=== PATIENT | male | born 1985 | race Caucasian/White ===

== ENCOUNTER → 2022-02-04 14:40 | Outpatient (BNVA) | payer OTHER, SELFPAY | PROVIDERS: Visit Provider Nurse Practitioner Family | DX: I10 Essential (primary) hypertension (principal); Z13.6 Encounter for screening for cardiovascular disorders; Z79.899 Other long term (current) drug therapy; E55.9 Vitamin D deficiency, unspecified; M25.511 Pain in right shoulder; G89.29 Other chronic pain; M54.50 Low back pain, unspecified | CPT/HCPCS: 80053; 80061; 81003; 82306; 83036; 83880; 84439; 84443; 85025 ==

== ENCOUNTER 2022-02-09 10:21 | Outpatient (CLI) | payer OTHER, SELFPAY ==
--- NOTE | 2022-02-09 10:30 | XR_ITS ---
WS: [id number] Lumbar spine, AP view, L5-S1 spot, both obliques, lateral views in flexion, extension and neutral pos ition, 02/09/2022 Clinical Data: M54.50 - Low back pain, unspecified Comparison: None. Findings: No compression fractures or subluxation is seen. No disc space narrowing is seen. There is minimal an terior osteoarthritic spurring from L1 through L5. The transverse processes and SI joints are normal. The oblique films show no spondylolysis. On flexion and extension there is no limitation of motion or subluxation. There are upper abdominal surgical clips from a cholecystectomy. XR/XR lumbar spine 6V w f/e [id number] Impression: 1. Minimal osteoarthritis L-1-L5. 2. Negative for spondylolysis or spondylolisthesis. 3. Negative for limitation of motion or subluxation on flexion or extension.
--- NOTE | 2022-02-09 10:30 | XR_ITS ---
WS: [id number] Right shoulder, 2 views, 02/09/2022 Clinical Data: M25.511 - Pain in right shoulder Comparison: None. Findings: No fractures or dislocations are seen. The AC joint is normal. The adjacent right clavicle, right sca pula and ribs are normal. The soft tissues are unremarkable. XR/XR shoulder RT min 2V* [id number] Impression: Negative right shoulder.
== END 2022-02-09 10:22 | disposition home or self-care (01) ==
PROVIDERS: Visit Provider Nurse Practitioner Family
DX: M54.50 Low back pain, unspecified (principal); M25.511 Pain in right shoulder
CPT/HCPCS: 72114; 73030

== ENCOUNTER → 2023-05-05 10:10 | Outpatient (BNVA) | payer MEDICAID, SELFPAY | PROVIDERS: PCP Nurse Practitioner Family; Visit Provider Internal Medicine Cardiovascular Disease | DX: I25.10 Atherosclerotic heart disease of native coronary artery without angina pectoris (principal) | CPT/HCPCS: 93005 ==

== ENCOUNTER 2023-07-20 13:28 | Emergency (ER) | payer MEDICAID, SELFPAY ==
--- NOTE | 2023-07-20 13:31 | ED_ITS ---
HPI - General Adult General: Chief complaint: General Medical Stated complaint: HTN Time Seen by Provider: 07/20/23 13:29 Source: patient and EMS Mode of arrival: EMS Limitations: no limitations History of Present Illness: Patient is a 38-year-old male with a history of HTN who presents to ED today at the request of his primary care provider as he went to their office today and was found to be extremely hypertensive. Patient states he went to their office today due to an episode of slurred speech and left eye drooping that had occurred approximately 2 to 3 days earlier. He states the episode lasted approximately 30 to 45 minutes before subsiding and he states he has been asymptomatic since. Patient states he has had multiple episodes over the past 12 years consisting of intermittent numbness to the arms and legs and intermittent confusion. He states he has been hospitalized and told he has had TIAs. He reports all of his head scans have reportedly been normal. He has had carotid ultrasound imaging that was reportedly normal. Upon initial examination he has no neurologic complaints at this time. He is asymptomatic in regards to his hypertension. Patient states he takes his blood pressure at home and it normally runs 150s/90s. Has taken all of his medications today. Onset (ago): hour(s) Relieving factors: none Exacerbating factors: none Associated symptoms: Reports no associated symptoms; Deny chest pain, confusion, dyspnea, headache(s), malaise, nausea, rash, palpitations, syncope or vomiting Treatments prior to arrival: none Review of Systems Const: Denies: fever(s), chills, body aches, fatigue or malaise Eyes: Denies: change in vision, blurry vision, photophobia, floaters or seeing flashes Card: Denies: chest pain, palpitations, irregular heart rhythm, lightheadedness, syncope or pre-syncope Resp: Denies: dyspnea GI: Denies: abdominal pain, nausea or vomiting Musc: Denies: neck pain, back pain, extremity pain or joint pain Skin/Breast: Denies: rash Neuro: Reports: Slurred speech present (episode several days ago-subsided; asymptomatic since); Denies: headache(s), numbness in extremities, weakness in extremities, sensory changes, lack of coordination, difficulty walking, dizziness, vertigo, confusion, behavioral changes, difficulty communicating thoughts or seizure-like activity [facility] ED PFSH: Medical History Chronic low back pain Chronic shoulder pain History of anxiety History of asthma History of back injury History of posttraumatic stress disorder (PTSD) History of PSVT (paroxysmal supraventricular tachycardia) History of TIA (transient ischemic attack) Hypertension Hypertension screen Medication management Osteoarthritis of lumbar spine Right shoulder pain Vitamin D deficiency Surgical History H/O repair of rotator cuff History of right knee surgery S/P cholecystectomy Family History Mother Diabetes Hypertension Grandmother Diabetes Myocardial infarction Hypertension Grandfather Diabetes Myocardial infarction Stroke Hypertension Father Malignant melanoma Hypertension Social History Smoking and tobacco status: current some day smoker cigars Cigar details: Rarely Physical Exam Const: COMMON NORMALS: no acute distress, patient oriented x3, no limitations and alert GENERAL APPEARANCE: cooperative NUTRITIONAL APPEARANCE: obese morbidly obese ORIENTATION/CONSCIOUSNESS: Yes awake, Yes oriented to person, Yes oriented to place and Yes oriented to time HENMT: COMMON NORMALS: normocephalic and atraumatic HEAD & SCALP: normal to inspection, normocephalic and atraumatic Eye: GENERAL EYE: appearance normal, both eyes and all related structures and normal light reflex DIRECT OPHTHALMOSCOPY: Yes normal light reflex Neck/C-Spine: COMMON NORMALS: full ROM, no lymphadenopathy, no meningeal signs, no JVD and No carotid bruits Resp: COMMON NORMALS: normal respiratory effort and clear to auscultation bilaterally AUSCULTATION: clear to auscultation bilaterally Cardio: COMMON NORMALS: no JVD, regular rate and regular rhythm RATE: regular rate RHYTHM: regular rhythm GI: COMMON NORMALS: Normal to inspection, nondistended, normoactive bowel sounds present, Soft to palpation, non-tender and no masses INSPECTION: Yes normal to inspection and No visible pulsation PALPATION: Yes Soft to palpation Extremity: COMMON NORMALS: normal to inspection, capillary refill normal, no joint enlargement, no clubbing, cyanosis or edema, no calf tenderness and no pedal edema GENERAL: Yes normal exam except as noted Neuro: DARRYL COMA SCALE: document GCS findings Melber coma scale eye opening: Spontaneous Darryl coma scale verbal response: Orientated Melber coma scale motor response: Obey commands Melber coma scale total score: 15 COMMON NORMALS: patient oriented x3 SENSORIUM/ORIENTATION: Yes alert, Yes oriented to person, Yes oriented to place and Yes oriented to time MENINGEAL SIGNS: Yes no meningeal signs MOTOR EXAM: 5/5 motor strength present throughout Skin: COMMON NORMALS: no rashes or lesions noted GENERAL SKIN EXAM: no aba hes or lesions noted Course Vital Signs: Vital signs: Vital Signs Temperature 98.4 F 07/20/23 13:32 Pulse Rate 88 07/20/23 15:30 Respiratory Rate 20 H 07/20/23 13:32 Blood Pressure 136/88 07/20/23 15:30 Pulse Oximetry 96 07/20/23 15:30 Oxygen Delivery Me thod Room Air 07/20/23 14:14 MDM - General Adult Medical Decision Making Patient here at the request of his primary care provider due to elevated blood pressures. Upon arrival blood pressure was 170s /110s. He is asymptomatic. He complained of an episode 2 to 3 days ago where he had about 30 minutes of left- sided eye drooping and slurred speech. This has since subsided and he has been asymptomatic since. He tells me he has had multiple episodes of intermittent numbness and tingling to his arms and legs as well as intermittent episodes of confusion. He has been told he has had TIAs previously. Patient states he has had multiple hospitalizations but they never find anything wrong . I do not see any need for emergent imaging at this time. I think he can follow-up with his primary care provider in regards to this. Possibly a neurology referral if they feel indicated. Blood pressure has improved here with IV medications. He will be encouraged to keep a blood pressure log and follow-up with his primary care provider. We will have him increase his lisinopril from 20 mg to 30 mg daily. Lab Data 07/20/23 15:01 07/20/23 15:01 Laboratory Results WBC 9.29 10^3/uL (3.29-11.43) 07/20/23 15:01 RBC 5.25 10^6/uL (3.85-5.65) 07/20/23 15:01 Hgb 15.60 g/dL (11.27-16.99) 07/20/23 15:01 Hct 45.4 % (37-53) 07/20/23 15:01 MCV 86.5 fl (82-101) 07/20/23 15:01 MCH 29.7 pg (27-33) 07/20/23 15:01 MCHC 34.4 g/dL (30-55) 07/20/23 15:01 RDW 12.8 % (12.1-15.1) 07/20/23 15:01 Plt Count 217 10^3/cmm (157-399) 07/20/23 15:01 MPV 10.8 fL (7.4-10.4) H 07/20/23 15:01 Neut % (Auto) 75.7 % 07/20/23 15:01 Lymph % (Auto) 16.9 % 07/20/23 15:01 [place] % (Auto) 5.7 % 07/20/23 15:01 Eos % (Auto) 1.0 % 07/20/23 15:01 Baso % (Auto) 0.5 % 07/20/23 15:01 Neut # (Auto) 7.03 10^3/uL (1.8-7.7) 07/20/23 15:01 Lymph # (Auto) 1.6 10^3/uL (0.8-4.8) 07/20/23 15:01 [place] # (Auto) 0.5 10^3/uL (0.2-0.9) 07/20/23 15:01 Eos # (Auto) 0.1 10^3/uL (0.0-0.8) 07/20/23 15:01 Baso # (Auto) 0.1 10^3/uL (0.0-0.1) 07/20/23 15:01 Nucleated RBC % (auto) 0 % 07/20/23 15:01 Nucleated RBCs # 0.0 /100WBC 07/20/23 15:01 Sodium 140 mmol/L (136-145) 07/20/23 15:01 Potassium 3.7 mmol/L (3.5-5.1) 07/20/23 15:01 Chloride 103 mmol/L (98-107) 07/20/23 15:01 Carbon Dioxide 27 mmol/L (22-29) 07/20/23 15:01 Anion Gap 13.7 (5-19) 07/20/23 15:01 BUN 9 mg/dL (6-20) 07/20/23 15:01 Creatinine 0.9 mg/dL (0.7-1.2) 07/20/23 15:01 GFR Calculation 95.0 mL/min (90-130) 07/20/23 15:01 Glucose 92 mg/dL (65-115) 07/20/23 15:01 Calculated Osmolality 288 mOsm/kg (285-295) 07/20/23 15:01 Calcium 9.5 mg/dL (8.5-10.5) 07/20/23 15:01 Total Bilirubin 0.5 mg/dL (0.15-1.2) 07/20/23 15:01 AST 36 U/L (0-40) 07/20/23 15:01 ALT 66 U/L (0-41) H 07/20/23 15:01 Alkaline Phosphatase 74 U/L (40-130) 07/20/23 15:01 Total Protein 7.5 g/dL (6.6-8.7) 07/20/23 15:01 Albumin 4.8 g/dL (3.5-5.2) 07/20/23 15:01 Globulin 2.7 g/dL (1.3-4.6) 07/20/23 15:01 Urine Color Yellow (Yellow) 07/20/23 15:35 Urine Appearance Clear (CLEAR) 07/20/23 15:35 Urine pH 5 (5-7) 07/20/23 15:35 Ur Specific [place] 1.020 (1.005-1.030) 07/20/23 15:35 Urine Protein Neg (Negative) 07/20/23 15:35 Urine Glucose (UA) Norm (Normal) 07/20/23 15:35 Urine Ketones Negative (Negative) 07/20/23 15:35 Urine Blood Neg (Negative) 07/20/23 15:35 Urine Nitrate Negative (Negative) 07/20/23 15:35 Urine Bilirubin Neg (Negative) 07/20/23 15:35 Urine Urobilinogen Norm mg/dL (Negative) 07/20/23 15:35 Ur Leukocyte Esterase Negative (Negative) 07/20/23 15:35 Discharge Plan Discharge Patient Disposition: Home Clinical Impression: Asymptomatic hypertensive urgency Condition: Stable Prescriptions: No Action meloxicam 15 mg tablet 15 mg PO DAILY 30 Days Qty: 30 1RF fluoxetine 40 mg capsule 40 mg PO DAILY trazodone 50 mg tablet 50 mg PO .HS lisinopril 20 mg tablet 20 mg PO DAILY olanzapine 2.5 mg tablet 2.5 mg PO DAILY amitriptyline 50 mg tablet 50 mg PO .HS buspirone 10 mg tablet 10 mg PO BID fluticasone propion-salmeterol [Advair Diskus] 250-50 mcg/dose blister with device 1 inh inhalation BID hydroxyzine HCl 25 mg tablet 25 mg PO TID PRN hydrochlorothiazide 25 mg tablet 25 mg PO DAILY ondansetron 4 mg tablet,disintegrating 4 mg PO Q8H PRN albuterol sulfate [Ventolin HFA] 90 mcg/actuation HFA aerosol inhaler 2 puff inhalation Q6H PRN (Reason: Shortness Of Breath) Discharge Orders: Discharge ED (Routine); Ordered 07/20/23 Ordered By: Loree New Referrals: Mirta Green [facility] INSURANCE ASSESSOR [Primary Care Provider] - Patient Instructions: Hypertension Activity Restrictions/Additional Instructions: As discussed, you may increase your dose of lisinopril to 30 mg once daily. Please keep a log of your blood pressures, and record your blood pressure once in the morning and once in the evening. Follow-up with your primary care provider in the next week to discuss ER visit and for further evaluation. Return if you develop any chest pain, breathing difficulties, or any other symptoms you may have. Coding Level of Care Code ED [employer] for Steve Fontana
[2023-07-20 13:32] VITALS: BP 172/112; PULSE 85; RESP 20; TEMP 36.9; O2SAT 96
[2023-07-20] MEDS: hyDRALAzine 20 mg/mL INJ 1 mL 10 MG IVP (14:09)
[2023-07-20 14:14] VITALS: BP 190/122; PULSE 87; O2SAT 97
[2023-07-20 15:00] VITALS: BP 150/94; PULSE 91; O2SAT 97
[2023-07-20] MEDS: enalaprilat 1.25 mg/mL Inj IVP (15:08)
[2023-07-20 15:21] LABS: Basophils # 0.1 10^3/uL (0.0-0.1); Basophils % 0.5 %; Eosinophils # 0.1 10^3/uL (0.0-0.8); Hematocrit 45.4 % (37-53); Lymphocytes # 1.6 10^3/uL (0.8-4.8); Lymphocytes % 16.9 %; Mean Corpuscular HGB Conc 34.4 g/dL (30-55); Mean Corpuscular Hemoglobin 29.7 pg (27-33); Mean Corpuscular Volume 86.5 fl (82-101); Mean Platelet Volume 10.8 fL (7.4-10.4); Monocytes # 0.5 10^3/uL (0.2-0.9); Monocytes % 5.7 %; Neutrophils # 7.03 10^3/uL (1.8-7.7); Neutrophils % 75.7 %; Nucleated Red Blood Cells % 0 %; Platelet Count 217 10^3/cmm (157-399); Red Blood Count 5.25 10^6/uL (3.85-5.65); Red Cell Distribution Width 12.8 % (12.1-15.1); White Blood Count 9.29 10^3/uL (3.29-11.43)
[2023-07-20 15:30] VITALS: BP 136/88; PULSE 88; O2SAT 96
[2023-07-20 15:43] LABS: Alanine Aminotransferase 66 U/L (0-41); Albumin Level 4.8 g/dL (3.5-5.2); Alkaline Phosphatase 74 U/L (40-130); Anion Gap 13.7 (5-19); Aspartate Amino Transferase 36 U/L (0-40); Blood Urea Nitrogen 9 mg/dL (6-20); Calcium 9.5 mg/dL (8.5-10.5); Carbon Dioxide 27 mmol/L (22-29); Chloride 103 mmol/L (98-107); Globulin 2.7 g/dL (1.3-4.6); Glucose 92 mg/dL (65-115); Osmolality Calculated 288 mOsm/kg (285-295); Potassium 3.7 mmol/L (3.5-5.1); Sodium 140 mmol/L (136-145); Total Bilirubin 0.5 mg/dL (0.15-1.2); Total Protein 7.5 g/dL (6.6-8.7)
[2023-07-20 15:44] LABS: Add Urine Microscopic? NO; Charge for UA Resulting for Rev
[2023-07-20 15:49] LABS: Bilirubin Urine Neg (Negative); Blood Urine Neg (Negative); Glucose Urine UA Norm (Normal); Ketones Urine Negative (Negative); Leukocyte Esterase Urine Negative (Negative); Nitrate Urine Negative (Negative); Protein Urine Neg (Negative); Urine Appearance Clear (CLEAR); Urine Color Yellow (Yellow); Urobilinogen Urine Norm (Negative); pH Urine 5 (5-7)
[2023-07-20 16:11] VITALS: BP 149/82; PULSE 89; O2SAT 96
== END 2023-07-20 16:12 | disposition home or self-care (01) ==
PROVIDERS: Emergency Provider Physician Assistant; PCP Nurse Practitioner Family
DX: I16.0 Hypertensive urgency (principal)
CPT/HCPCS: 36415; 80053; 81003; 85025; 96374; 96375; 99284; J0360; J3490

== ENCOUNTER 2024-06-09 11:45 | Outpatient (CLI) | payer MEDICAID, SELFPAY ==
--- NOTE | 2024-06-09 10:57 | MR_ITS ---
WS: [id number] MRI RIGHT KNEE NONCONTRAST TECHNIQUE: Axial PD, coronal PD fat sat, coronal PD, sagittal PD, and sagittal PD fat-sat images obta ined. CLINICAL INFORMATION: PAIN IN R KNEE COMPARISON: None. FINDINGS: Distal quadriceps and patella tendons are intact. Slightly hypertrophic patella. Advanced chondromala swathi patella advanced for patient this age involving the lateral patellar facet with chondral fissurin g and subchondral edema. Medial and lateral patellar retinaculum appear intact. Normal medial and lat eral collateral ligaments. Prepatellar and infrapatellar soft tissue edema. ACL and PCL are intact. Fibular head normal in appearance. No acute appearing meniscal tears. Normal bone marrow signal in the femoral condyles and tibial plateau. MR/MR knee RT wo con* [id number] IMPRESSION: 1. Normal ACL and PCL. 2. Normal medial and lateral meniscus. No acute appearing meniscal tears. 3. Grade IV chondromalacia patella worse involving the lateral patellar facet with subchondral edema and chondral fissuring. This is advanced for a patient t his age. 4. Medial and lateral patellar retinaculum appear intact. 5. Small amount of prepatellar and infrapatellar subcutaneous soft tissue ang a. Trace patella fluid Outbridge grading: grade IV: full-thickness cartilage loss with underlying bone reactive changes
== END 2024-06-09 11:46 | disposition home or self-care (01) ==
PROVIDERS: PCP Nurse Practitioner Family; Visit Provider Nurse Practitioner Family
DX: M22.41 Chondromalacia patellae, right knee (principal); M89.461 Other hypertrophic osteoarthropathy, right lower leg
CPT/HCPCS: 73721

== ENCOUNTER → 2025-02-07 09:21 | Outpatient (BNVA) | payer MEDICAID, SELFPAY | PROVIDERS: PCP Nurse Practitioner Family; Visit Provider Specialist | DX: M25.561 Pain in right knee (principal); G89.29 Other chronic pain; Z68.41 Body mass index [BMI] 40.0-44.9, adult | CPT/HCPCS: 73560; 73565 ==

== ENCOUNTER → 2025-02-13 14:13 | Outpatient (BNVA) | payer MEDICAID, SELFPAY | PROVIDERS: PCP Nurse Practitioner Family; Visit Provider Orthopaedic Surgery | DX: M54.9 Dorsalgia, unspecified (principal) | CPT/HCPCS: 72110 ==

== ENCOUNTER 2025-05-29 05:00 | Outpatient (RCR) | payer MEDICAID, SELFPAY | END 2025-06-28 23:59 | disposition home or self-care (01) | LOC: WPT 05:00 | PROVIDERS: Visit Provider Student in an Organized Health Care Education/Training Program | DX: M54.50 Low back pain, unspecified (principal); G89.29 Other chronic pain | CPT/HCPCS: 97110; 97112; 97162; 97530 ==

== ENCOUNTER 2025-06-29 05:00 | Outpatient (RCR) | payer MEDICAID, SELFPAY | END 2025-07-29 23:59 | disposition home or self-care (01) | LOC: WPT 05:00 | PROVIDERS: Visit Provider Student in an Organized Health Care Education/Training Program | DX: M54.50 Low back pain, unspecified (principal); G89.29 Other chronic pain | CPT/HCPCS: 97110; 97112; 97530 ==

== ENCOUNTER 2025-07-30 05:00 | Outpatient (RCR) | payer MEDICAID, SELFPAY | END 2025-08-28 23:59 | disposition home or self-care (01) | LOC: WPT 05:00 | PROVIDERS: Visit Provider Student in an Organized Health Care Education/Training Program | DX: M54.50 Low back pain, unspecified (principal); G89.29 Other chronic pain | CPT/HCPCS: 97110; 97112; 97530 ==